=== PATIENT | male | born 1985 | race Caucasian/White ===

== ENCOUNTER 2019-01-12 11:46 | Emergency (ER) | payer OTHER ==
[~2019-01-12] VITALS: Ht 162.6 cm; Wt 75.3 kg
[2019-01-12 12:02] VITALS: Ht 162.6 cm; Wt 75.3 kg
[2019-01-12 13:21] VITALS: BP 134/85
== END 2019-01-12 13:19 | disposition home or self-care (01) ==
LOC: ED 11:46
DX: S62.306A Unspecified fracture of fifth metacarpal bone, right hand, initial encounter for closed fracture (principal); W22.8XXA Striking against or struck by other objects, initial encounter; Y93.89 Activity, other specified; Y92.89 Other specified places as the place of occurrence of the external cause; Y99.8 Other external cause status